=== PATIENT | male | born 1955 | race African-American/Black ===

== ENCOUNTER 2017-06-07 04:22 | Observation (INO) | payer OTHER ==
[2017-06-07 06:20] LABS: Troponin I 0.018 ng/mL (< 0.028)
[2017-06-07] MEDS ORDERED: Ondansetron ODT 4 MG TAB PO PRN (07:24)
[2017-06-07] MEDS ORDERED: Milk Of Magnesia 30 ML UDCUP PO PRN (07:24)
[2017-06-07] MEDS ORDERED: Zolpidem Tartrate 5 MG TAB PO PRN (07:24)
[2017-06-07] MEDS ORDERED: Mag-Al 1200 mg/1200 mg/30 ML UDCUP PO PRN (07:24)
[2017-06-07] MEDS ORDERED: Loperamide HCl 2 MG CAP PO PRN (07:24)
[2017-06-07] MEDS ORDERED: HYDROcodone/Acetaminophen 5/325 mg Tablet PO PRN (07:24)
[2017-06-07] MEDS ORDERED: Senokot 8.6 MG TAB PO PRN (07:24)
[2017-06-07] MEDS ORDERED: Ondansetron HCl/PF 4 MG/2 ML Vial IVP PRN (07:24)
[2017-06-07] MEDS ORDERED: Acetaminophen 325 MG TAB PO PRN (07:24)
[2017-06-07 07:30] VITALS: BMI 33.0
[2017-06-07 07:33] LABS: #Basophils 0.1 thou/uL (0.0-0.2); #Lymphocytes 2.6 thou/uL (1.20-3.40); #Monocytes 0.5 thou/uL (0.11-0.59); #Neutrophils 8.9 thou/uL (1.40-6.50); %Basophils 0.4 % (0.0-1.0); %Eosinophils 0.2 % (0.0-10.0); %Lymphocytes 21.9 % (21.0-51.0); Hematocrit 39.8 % (42.0-52.0); Red Blood Cell (RBC) Count 4.55 mill/uL (4.70-6.10); White Blood Cell (WBC) Count 12.1 thou/uL (4.8-10.8)
[2017-06-07 08:05] LABS: Anion Gap 13 mmol/L (10-20); BUN (Urea Nitrogen) 8 mg/dL (8.4-25.7); Calc. Creatinine Clearance 174 mL/min (70-130); Calcium 9.5 mg/dL (7.8-10.44); Carbon Dioxide 27 mmol/L (23-31); Chloride 97 mmol/L (98-107); Cholesterol 162 mg/dl (< 200 Desired); Estimated GFR-MDRD Greater than 90; LDL Cholesterol, Calculated 90 mg/dL
[2017-06-07] MEDS ORDERED: Dextrose 50% Abboject 50 ML SYRINGE SLOW IVP PRN (08:21)
[2017-06-07] MEDS ORDERED: HumaLOG 300 UNITS/3 ML VIAL SC PRN ×2 (08:21)
[2017-06-07] MEDS ORDERED: Dextrose 5% in Water 1,000 ML IV PRN (08:21)
[2017-06-07] MEDS ORDERED: Potassium Chloride 20 MEQ TAB PO SCH (08:30)
[2017-06-07 08:47] LABS: Troponin I 0.017 ng/mL (< 0.028)
[2017-06-07] MEDS ORDERED: Glimepiride 2 MG TAB PO SCH (09:00)
[2017-06-07] MEDS ORDERED: Non-Formulary Item 1 EACH (Metformin Hcl [Metformin Hcl] 1,000 MG) PO SCH (09:00)
[2017-06-07] MEDS ORDERED: Famotidine 20 MG TAB PO SCH (09:00)
[2017-06-07] MEDS ORDERED: Non-Formulary Item 1 EACH (Benazepril Hcl [Benazepril Hcl] 20 MG) PO SCH (09:00)
[2017-06-07] MEDS ORDERED: metFORMIN 500 MG TAB PO SCH (09:00)
[2017-06-07] MEDS ORDERED: Aspirin 325 MG TAB PO SCH ×2 (09:00→21:00)
[2017-06-07] MEDS: Amlodipine 5 MG TAB PO SCH ×2 (09:57→16:08)
--- NOTE | 2017-06-07 13:16 | SS ---
PRIMARY CARE PHYSICIAN: Dr. Praveen Luna in [place]. DATE OF ADMISSION: 06/07/2017 at 5 a.m. DATE OF DISCHARGE: 06/07/2017 REASON FOR ADMISSION: Transfer from [facility] for rule out ACS. HISTORY OF PRESENT ILLNESS: A 62-year-old -[place] male, who has underlying history of hypertension, diabetes type 2, who also abuses periodically marijuana as well as cocaine and he initially went to the [facility] with complaint of chest pain. The patient's chest pain started after abusing cocaine at constitution party and he also ate barbecue and subsequently he was feeling entire chest wall discomfort, pressure-like sensation, more on the right side as well radiation to neck. Initially, intensity of pain was about 7/10, but gradually intensity of pain was reduced and around 3:00 a.m., his pains completely subsided. The patient was also having cough, which was green sputum without any fever or chills. He denied any pleurisy. He denied any nausea, vomiting, diaphoresis, but he felt shortness of breath. He was evaluated initially at [facility] and over there his EKG was normal. His blood pressure was 209/138. He was given aspirin and nitroglycerin sublingual and nitropatch as well as Zofran and morphine. After this treatment, he was feeling much better. When we saw this patient in the morning, at that time the patient was completely pain free and he was asymptomatic. At this point, his cardiac enzymes are negative and we decided to do a stress test, given his several risk factors for coronary artery disease including diabetes, hypertension, and his age. If stress test is come back negative later on today, then we will consider discharging him home later on today. REVIEW OF SYSTEMS: The following complete review of systems was negative, unless otherwise mentioned in the HPI or below: Constitutional: Weight loss or gain, ability to conduct usual activities. Skin: Rash, itching. Eyes: Double vision, pain. ENT/Mouth: Nose bleeding, neck stiffness, pain, tenderness. Cardiovascular: Palpitations, dyspnea on exertion, orthopnea. Respiratory: Shortness of breath, wheezing, cough, hemoptysis, fever or night sweats. Gastrointestinal: Poor appetite, abdominal pain, heartburn, nausea, vomiting, constipation, or diarrhea. Genitourinary: Urgency, frequency, dysuria, nocturia. Musculoskeletal: Pain, swelling. Neurologic/Psychiatric: Anxiety, depression. Allergy/Immunologic: Skin rash, bleeding tendency. Please see my HPI for pertinent positives and negatives. All other review of systems reviewed and negative except as mentioned in the HPI. ALLERGIES: No known drug allergy. MEDICATIONS: Amlodipine 10 mg p.o. daily, benazepril 20 mg p.o. daily, metformin 1000 mg p.o. daily, Lantus insulin 37 units subcutaneous in the evening. PAST MEDICAL HISTORY: Hypertension, diabetes type 2, and obesity. PAST SURGICAL HISTORY: Appendicectomy, hernia repair, and back surgery. PAST PSYCHIATRIC HISTORY: Reviewed and negative. SOCIAL HISTORY: The patient is smoking about 1 pack per day. He abuses cocaine and marijuana periodically. He denies any alcohol abuse, but also uses periodically. FAMILY HISTORY: Positive for coronary artery disease, hypertension, diabetes among several family members. EMERGENCY ROOM COURSE: Patient is given aspirin and nitroglycerin 0.4 mg, nitropatch, Zofran, and morphine at other emergency room. PHYSICAL EXAMINATION: VITAL SIGNS: On arrival, blood pressure here 182/111, pulse 79, respiratory rate 16, temperature 98.3, saturation 95% on room air, weight 117.9 kilograms. GENERAL: The patient is currently alert, oriented, in no acute distress. HEAD: Normocephalic, atraumatic. LUNGS: Clear to auscultation without any rhonchi or rales. CARDIAC: S1 and S2, regular without any murmur. ENT: Oropharynx within normal limits. Moist mucous membranes. No pharyngeal erythema. No exudate. ABDOMEN: Soft and benign without any tenderness. No organomegaly, no mass, no suprapubic tenderness. BACK: Unremarkable. No CVA tenderness. EXTREMITIES: Upper extremity, passive movement of all joints are normal. Lower extremity, no edema. Good peripheral pulsation. SKIN: No skin rash. HEMATOLOGIC: No lymphadenopathy. NEUROLOGIC: Nonfocal examination. SIGNIFICANT LABORATORY DATA: EKG based on my review reveals normal sinus rhythm , nonspecific ST-T changes, LVH. Chest x-ray based on my review, no acute cardiopulmonary process. CBC: WBC 12.1, hemoglobin 13.2, and platelet 262. BMP: Sodium 134, potassium 3.0, chloride 97, carbon dioxide 27, BUN 8, creatinine 0.71, glucose 158, calcium 9.5. Troponin I 0.018 and then 0.017. Lipid profile: LDL 90, HDL 55, cholesterol 162, triglyceride 84. LFT: AST 34 , ALT 33, alkaline phosphatase 108, albumin 4.6, bilirubin 0.7. BNP 79.2. Urine drug screen done over there, which showed positive for cocaine and cannabinoids. Urinalysis normal. ASSESSMENT AND PLAN: 1. Acute chest pain most likely has association with cocaine abuse. His chest pain most likely related with vasospasm. Surprisingly, his troponin is negative and his EKG is also unremarkable. We can explain his chest pain with cocaine, but he also has at the same time several risk factors for coronary artery disease including hypertension, diabetes that is why we will perform stress test to rule out underlying silent ischemia. We already ruled out acute coronary syndrome with a negative 3 cardiac enzymes, lipid profile also check for risk stratification and that is also within normal limits. At this point, once stress test is negative, then we will consider discharging him home. 2. Polysubstance abuse. The patient has periodical cocaine and marijuana abuse as well as smoking as well as alcohol use. I provided counseling to avoid all other illicit drug abuse. 3. Hypokalemia and hyponatremia. The patient is given potassium chloride 20 mEq p.o. one time dose. 4. Diabetes type 2. The patient will resume glimepiride 2 mg and Lantus 37 units subcutaneous in the evening along with metformin 1000 mg p.o. b.i.d. upon discharge. Diabetic diet will be continued. 5. Hypertension with hypertensive urgency. Currently controlled. Continue amlodipine 5 mg p.o. daily, continue benazepril 20 mg p.o. daily. 6. Obesity with BMI 33, weight loss education will be given. 7. Deep venous thrombosis prophylaxis not needed because we are expecting discharge in 24 hours. 8. Gastrointestinal prophylaxis, Pepcid 20 mg p.o. b.i.d. CODE STATUS: Patient is FULL CODE. The patient's is surrogate decision maker. Disposition plan based on clinical course, based on stress test result. DATE OF ADMISSION: 06/07/2017 DATE OF DISCHARGE: 06/07/2017 DISCHARGE DISPOSITION: Home. PRIMARY DISCHARGE DIAGNOSIS: Chest pain, ruled out acute coronary syndrome, likely due to cocaine. SECONDARY DISCHARGE DIAGNOSES: Diabetes type 2, hypertension, obesity with BMI 33. PRIMARY PROCEDURES/OPERATION: None. RADIOLOGIC INVESTIGATION: Chest x-ray was normal. Stress test: pending result. SIGNIFICANT LABORATORY DATA: Please see above for further details. CONTRAINDICATIONS: None. CODE STATUS: FULL CODE. INPATIENT CONSULTANTS: None. ALLERGIES: No known drug allergy. DISCHARGE PLAN: Post hospital, the patient will follow up with primary care physician. HOSPITAL COURSE: Please see my HPI for further details. The patient is admitted and discharged on the same day. STRESS TEST IS NEGATIVE, ADVISED TO GET ECHO AFTER DISCHARGE AND FOLLOW UP WITH PCP LILIAN
[2017-06-07] MEDS ORDERED: Nitroglycerin 2% Ointment 1 INCH/1 GM Packet TOP SCH (14:00)
[2017-06-07 15:45] VITALS: BP 148/91; TEMP 98.7
--- NOTE | 2017-06-07 16:29 | NM ---
MYOCARDIAL PERFUSION STUDY: 06/07/17 HISTORY: Chest pain. History of hypertension and diabetes mellitus. Positive smoking history. RADIOPHARMACEUTICALS: 27 millicuries technetium 99m Sestamibi, IV at stress and 9 millicuries technetium 99m Sestamibi, IV at rest. MEDICATIONS: 21.3 mL (63.8 mg) Adenosine, IV. FINDINGS: There is normal uptake and distribution of radiotracer seen throughout the left ventricular myocardiu m on the stress acquisition. No reversible defect is seen between the stress and resting acquisition s. Quantitative analysis shows no significant reversible defect. Gaited images show global hypokinesi s. Normal ventricular wall thickening is present. Calculated left ventricular ejection fraction is di minished at 43%. IMPRESSION: 1. Normal myocardial perfusion study without evidence of a reversible defect seen to suggest isc hemia. 2. Global hypokinesis. 3. Diminished LVEF of 43%. POS: CHRIS
[2017-06-07] MEDS ORDERED: INSULIN GLARGINE HUM REC ANLOG 37 UNIT SQ SCH (21:00)
[2017-06-07] MEDS ORDERED: Insulin Detemir 100 UNITS/ML 37 UNITS in Pre-Filled Syringe 1 EACH SC SCH (21:00)
--- NOTE | 2017-06-17 16:48 | EKG ---
Test Reason : CHEST PAIN Blood Pressure : / mmHG Vent. Rate : 078 BPM Atrial Rate : 078 BPM P-R Int : 156 ms QRS Dur : 086 ms QT Int : 464 ms P-R-T Axes : 022 -11 -14 degrees QTc Int : 528 ms Normal sinus rhythm Voltage criteria for left ventricular hypertrophy Nonspecific T wave abnormality Prolonged QT Abnormal ECG Confirmed by LILO SMALL, MARYCRUZ ([id number]), magazine editor GAGE SHEPHERD ([id number]) on 06/17/2017 4:47:14 PM Referred By: LILO Confirmed By:MARYCRUZ NAGY MD
--- NOTE | 2017-06-24 13:35 | STRESS ---
Acquisition Time: 2017-06-07 13:28:35 Total Exercise Time: 00:04:00 Test Indications: CHEST PAIN Medications: Protocol: ADENOSINE Max HR: 082 BPM 51% of Pred: 158 BPM Max BP: 164/100 mmHG Max Work Load: 1.0 METS RESTING ECG: NORMAL SINUS RHYTHM AT 69 BPM WITH NON-SPECIFIC ST SEGMENT AND T-WAVE ABNORMALITIES SYMPTOMS: CHEST PAIN APPROPRIATE BLOOD PRESSURE RESPONSE FOR LEXISCAN ECTOPY: NONE ECG RESPONSE: INVERTED T-WAVES INTERPRETATION: POSITIVE ECG/AWAIT NUCLEAR IMAGES FOR DEFINITIVE DIAGNOSIS Confirmed by BRAD WHEELER MD ([id number]) on 06/24/2017 1:34:22 PM Referred By: Levon JENKINS Confirmed By:BRAD WHEELER MD
== END 2017-06-07 18:17 | disposition home or self-care (01) ==
LOC: ERS 04:22 → 2SW 05:05
PROVIDERS: ADMIT Internal Medicine; ATTEND Internal Medicine
DX: R07.9 Chest pain, unspecified (principal); F19.10 Other psychoactive substance abuse, uncomplicated; E11.9 Type 2 diabetes mellitus without complications; I10 Essential (primary) hypertension; I16.0 Hypertensive urgency; E66.9 Obesity, unspecified; F17.210 Nicotine dependence, cigarettes, uncomplicated; Z68.33 Body mass index [BMI] 33.0-33.9, adult; Z79.4 Long term (current) use of insulin; Z79.899 Other long term (current) drug therapy; Z90.49 Acquired absence of other specified parts of digestive tract; Z98.890 Other specified postprocedural states
CPT/HCPCS: 36415; 36416; 78452; 80048; 80061; 84484; 85025; 93005; 93017; 99285; A9500; G0378; J0153; J1815

== ENCOUNTER 2018-05-03 17:07 | Inpatient (IN) | payer MEDICARE, OTHER, SELFPAY ==
[2018-05-03] MEDS ORDERED: Ondansetron PF 4 MG/2 ML Vial ONE ×2 (17:52→19:47)
[2018-05-03 18:04] LABS: #Lymphocytes 1.5 thou/uL (1.20-3.40); #Monocytes 0.1 thou/uL (0.11-0.59); #Neutrophils 7.5 thou/uL (1.40-6.50); %Basophils 0.4 % (0.0-1.0); %Lymphocytes 16.2 % (21.0-51.0); %Monocytes 1.1 % (0.0-10.0); %Neutrophils 82.2 % (42.0-75.0); Hemoglobin 13.8 g/dL (14.0-18.0); Mean Corpuscular HGB CONC 31.1 g/dL (32.0-36.0); Mean Corpuscular Hemoglobin 26.8 pg (27.0-31.0); Mean Corpuscular Volume 86.1 fL (78.0-98.0); Mean Platelet Volume 8.4 fL (7.4-10.4); Platelet Count 276 thou/uL (130-400); RBC Distribution Width 11.8 % (11.5-14.5); Red Blood Cell (RBC) Count 5.14 mill/uL (4.70-6.10); White Blood Cell (WBC) Count 9.1 thou/uL (4.8-10.8)
[2018-05-03 18:12] LABS: PTT 25.8 SEC (22.9-36.1); Prothrombin Time 12.9 SEC (12.0-14.7)
[2018-05-03] MEDS ORDERED: hydrALAZINE 20 MG/ML VIAL ONE ×2 (18:26→19:07)
[2018-05-03 18:33] LABS: ALT (SGPT) 36 U/L (8-55); AST (SGOT) 31 U/L (5-34); Albumin 4.5 g/dL (3.4-4.8); Alkaline Phosphatase 120 U/L (40-150); Anion Gap 17 mmol/L (10-20); BUN (Urea Nitrogen) 8 mg/dL (8.4-25.7); Bilirubin, Total 0.4 mg/dL (0.2-1.2); CK (CPK) 111 U/L (30-200); Calc. Creatinine Clearance 0 mL/min (70-130); Calcium 8.8 mg/dL (7.8-10.44); Carbon Dioxide 22 mmol/L (23-31); Chloride 101 mmol/L (98-107); Estimated GFR-MDRD Greater than 90; Glucose 321 mg/dL (80-115); Potassium 3.3 mmol/L (3.5-5.1); Protein, Total 8.5 g/dL (5.8-8.1); Sodium 137 mmol/L (136-145)
[2018-05-03 18:38] LABS: CKMB 1.6 ng/mL (0-6.6); Troponin I 0.038 ng/mL (< 0.028)
[2018-05-03] MEDS ORDERED: niCARdipine 20MG In NaCl 20 MG/200 ML BAG ONE (19:29)
[2018-05-03] MEDS ORDERED: Ondansetron PF 4 MG/2 ML Vial IVP PRN (19:40)
[2018-05-03] MEDS ORDERED: Docusate 100 MG CAP PO PRN (19:40)
[2018-05-03] MEDS ORDERED: Bisacodyl 10 MG SUPP PR PRN (19:40)
[2018-05-03] MEDS ORDERED: Acetaminophen 325 MG TAB PO PRN (19:40)
[2018-05-03] MEDS ORDERED: Milk Of Magnesia 30 ML UDCUP PO PRN (19:40)
[2018-05-03] MEDS ORDERED: Mag-Al 1200 mg/1200 mg/30 ML UDCUP PO PRN (19:40)
[2018-05-03] MEDS ORDERED: Lidocaine 1% (PF) 30 ML VIAL ONE (19:47)
--- NOTE | 2018-05-03 20:10 | RAD ---
CHEST ONE VIEW: Indication: History of vertigo. Comparison: 05-03-18 FINDINGS: There is stable cardiomegaly. Osseous structures are unchanged. No pleural effusion or pneumothorax i s evident. IMPRESSION: Stable exam. POS: CHRIS
--- NOTE | 2018-05-03 20:49 | CT ---
CT OF THE BRAIN WITHOUT CONTRAST: 05/03/18 INDICATION: Stroke alert. Vomiting. FINDINGS: There is a intraparenchymal hemorrhage involving the left cerebellar hemisphere with hemorrhage exten mechelle into the subarachnoid space overlying the left cerebellar hemisphere extending into the ambient cistern. No hydrocephalus is evident. No midline shift is noted. There is some layered hemorrhage see n along the tentorium, left greater than right. The skull and extracranial soft tissues are unremarka ble appearing. IMPRESSION: 1. Acute intraparenchymal hemorrhage involving the left cerebellar hemisphere with hemorrhage ex tension into the subarachnoid space overlying the left cerebellar hemorrhage extending up into the am bient cistern and layering hemorrhage along the tentorium. No hydrocephalus or midline shift is evide nt. 2. Findings called to at 6:05 p.m. on 05/03/18. Followup MRI of the brain with and wi thout contrast may be helpful to exclude the presence of an underlying lesion related to the hemorrha ge. Neurology consultation is recommended. CT surveillance to document stability of size of the hemor rhage is recommended. POS: LOUIS
[2018-05-03 21:29] VITALS: BMI 28.3
[2018-05-03] MEDS ORDERED: niCARdipine HCl 50 MG in Sodium Chloride 0.9% 250 ML 240 ML IVPB PRN (21:46)
[2018-05-03 21:53] LABS: Troponin I 0.034 ng/mL (< 0.028)
[2018-05-03] MEDS: hydrALAZINE 20 MG/ML VIAL SLOW IVP PRN ×2 (21:57→23:10)
[2018-05-03] MEDS ORDERED: Dextrose 50% Abboject 50 ML SYRINGE IVP PRN (22:55)
[2018-05-03] MEDS ORDERED: Dextrose 5% in Water 1,000 ML IV PRN (22:55)
[2018-05-03] MEDS ORDERED: Amlodipine 10 MG TAB PO SCH (23:00)
[2018-05-03] MEDS: Insulin Regular 300 UNITS/3 ML VIAL SC PRN (23:50)
[2018-05-03] MEDS: Labetalol HCl 100 MG/20 ML VIAL SLOW IVP PRN (23:51)
[2018-05-04] MEDS: hydrALAZINE 20 MG/ML VIAL SLOW IVP PRN ×5 (00:47→09:29)
[2018-05-04] MEDS: niCARdipine HCl 50 MG in Sodium Chloride 0.9% 250 ML 230 ML IVPB PRN ×6 (00:50→22:56)
[2018-05-04 01:11] LABS: Troponin I 0.043 ng/mL (< 0.028)
--- NOTE | 2018-05-04 03:01 | HP ---
DATE OF CONSULTATION: 05/03/2018 HISTORY OF PRESENT ILLNESS: Mr. Husain came to the emergency department today due to vertigo, dizzin ess and imbalance. Patient has a history of uncontrolled hypertension as well as diabetes and appare nt history of marijuana and cocaine abuse. Patient states that this morning around 7:30 a.m., he was out checking his trap and he bent down and became dizzy. He states that he does not check his blood pressure regularly and that has kind of progressed, his dizziness got worse. He states that he star eriberto having some difficulty with speech and that he was unsteady on his feet. He states that he fell but did not hit his head or lose consciousness and he went to the [facility] prior to c oming to [place] in [place]. Patient states that he does not take his medications for his blood pre ssure or his diabetes, because of insufficient funds, he, however, smokes approximately a pack of cig arettes a day; however, he states today that he is done with them. Patient states that if he looks t o the right, the dizziness gets worse. If he lays with his eyes closed, it is more or less tolerable . Patient states that he does not take any blood thinners. REVIEW OF SYSTEMS: Patient reports chills and fevers. He reports weakness. He denies any change in vision or hearing. He states that he has been dizzy. Denies headache. Denies any sore throat or d ifficulty swallowing. He denies any chest pain or palpitations. He states that he has had some shor tness of breath. Denies cough. Denies any abdominal pain or constipation. He states that he has burkett d some diarrhea in the last couple of days. He stated that he has frequent urination, but no muscle or skeletal pain. PAST MEDICAL HISTORY: Significant for hypertension, diabetes type 2. SURGICAL HISTORY: States that he has not had a recent lumbar back surgery, knee surgery, and hernia repair. SOCIAL HISTORY: Patient denies alcohol use. He denies drug use; however, in 2017. He was admitted to our hospital with cocaine use. He states that he is currently a tobacco user. He smokes cigarett es approximately a pack a day. He lives in [place] with his . Retired from . MEDICATIONS: Amlodipine, benazepril, metformin, and Lantus. PHYSICAL EXAMINATION: VITAL SIGNS: Blood pressure 192/105, heart rate 64, respirations 22, oxygen 100% on room air, temper ature 98.4. GENERAL: Patient is alert and oriented to person, place, and time. He is resting in his hospital be d, he does appear to be in distress. He relates to the left side with his eyes closed and covers his head due to stated vertigo. HEENT: Head is normocephalic, atraumatic. Pupils are equal, round, reactive to light. Extraocular movements are intact. Hearing is intact. Moist mucous membranes. RESPIRATORY: Normal work of breathing room air, nondistressed. CARDIOVASCULAR: Regular rate and rhythm. EXTREMITIES: The patient is moving upper and lower extremities well. He denies pain 5/5 strength in deltoids, biceps, triceps, and therapeutic assistant strength; 5/5 bilateral strength in dorsiflexion, plantar flexio n, knee flexion and extension; 4/5 hip flexion on the right, weakness, possibly due to prior lumbar s urgery. Equal sensation bilaterally. NEUROLOGIC: Patient is alert and oriented to person, place and time. Cranial nerves II through XII are intact. Speech is spontaneous and fluent. Normal fund of knowledge, no pronator drift, light fa cial droop on the left. Sensation is symmetrical bilaterally, equal sensation bilaterally. He has d ecreased speed with [id number] test on the left. IMAGING: CT of the brain shows a left intracerebellar hemorrhage, which measures approximately 22.4 mm as the largest. ASSESSMENT AND PLAN: Mr. Husain has sustained an intracerebellar hemorrhage, most likely due to unco ntrolled hypertension. PLAN: We will admit him to the hospital and monitor him overnight. We will control his blood pressu re, we will keep it below 140 systolic. We will repeat the CT scan in the morning and obtain regular neuro checks.
[2018-05-04] MEDS: Labetalol HCl 100 MG/20 ML VIAL SLOW IVP PRN (04:03)
[2018-05-04] MEDS: Insulin Regular 300 UNITS/3 ML VIAL SC PRN (05:33)
[2018-05-04] MEDS ORDERED: Ondansetron PF 4 MG/2 ML Vial IVP PRN (06:51)
--- NOTE | 2018-05-04 07:18 | PRG ---
DATE OF SERVICE: 05/04/2018 I personally interviewed and examined the patient and I agree with the documentation of Gemini turner PA-C, dated 05/04/2018. Briefly, Mr. Anish Husain noticed he was off balance yesterday morning and took a fall. He did not strike his head, but he almost went down to the ground. That imbalance and incoordination continued and he sought care in our emergency department where CT examination of the brain showed a cerebellar intraparenchymal hemorrhage. He was admitted to ICU overnight. We controlled his blood pressure and I am seeing him this morning. Mr. Husain denies any neurological complaints this morning. He says he is headache free. He feels great. He wants to leave the hospital. Vital signs have been stable overnight and the blood pressure, which was high on admission is currently 152/53. On examination, t here is mild, if any, dysmetria in the left upper extremity. I did not test truncal ataxia, but the upper and lower extremities seem to be moving well. Alternating rapid motions are slightly slower on the left. I do not find any lateralizing motor deficit. There is no sensory disturbance. I reviewed CT examination of the brain this morning and I see the intraparenchymal hematoma in the le ft cerebellum with some extension into the subarachnoid space. The area of blood products and the si ze of the blood products are exactly the same as they were yesterday. There is no additional mass ef fect. There is no swelling. The fourth ventricle is open. There is no hydrocephalus. Mr. Husain's intraparenchymal hemorrhage is likely a spontaneous intracerebral hemorrhage from hypert ension. Other possibilities include a cavernous malformation, metastatic lesion and primary neoplasm , but finding those with MR imaging in the presence of blood products would require us to wait until the blood is resolved. Mr. Husain does not require neurosurgical intervention. We will hand off this care to the inpatient medical team. If our colleagues are inquisitive about the potential of metastatic lesion, a CT of th e chest, abdomen, and pelvis or an MRI scan of the brain with and without contrast can be ordered [facility] for other lesions. I plan on scheduling a brain MRI scan when the blood products have resolved completely in our office in a few weeks.
[2018-05-04] MEDS ORDERED: Dextrose 5% in Water 1,000 ML IV PRN ×2 (07:42→07:45)
[2018-05-04] MEDS ORDERED: Dextrose 50% Abboject 50 ML SYRINGE SLOW IVP PRN ×2 (07:42→07:45)
[2018-05-04] MEDS ORDERED: CCU Electrolyte Replacement 1 EACH FS ONE (07:52)
[2018-05-04] MEDS ORDERED: Potassium Chloride 40 MEQ in Sodium Chloride 0.9% 250 ML 250 ML IVPB PRN (08:03)
[2018-05-04] MEDS ORDERED: Potassium Chloride 20 MEQ TAB PO PRN (08:03)
[2018-05-04] MEDS ORDERED: Magnesium Oxide 400 MG TAB PO PRN ×2 (08:03)
[2018-05-04] MEDS ORDERED: Magnesium 2 GM/NS 0.9% 100 ML 2 GM in Premix Bag 1 BAG IVPB PRN (08:03)
[2018-05-04] MEDS ORDERED: Potassium Phosphate 9 MMOL in Sodium Chloride 0.9% 100 ML IVPB PRN (08:03)
[2018-05-04] MEDS ORDERED: Potassium Phosphate 15 MMOL in Sodium Chloride 0.9% 250 ML 250 ML IV PRN (08:03)
[2018-05-04] MEDS ORDERED: Potassium Phosphate 12 MMOL in Sodium Chloride 0.9% 250 ML 250 ML IV PRN (08:03)
[2018-05-04] MEDS ORDERED: Potassium Chloride 40 MEQ in Premix Bag 1 BAG IVPB PRN (08:03)
--- NOTE | 2018-05-04 08:23 | CON ---
DATE OF CONSULTATION: 05/04/2018 CONSULTING PHYSICIAN: Dr. Alvarez REASON FOR CONSULTATION: Hypertension, diabetes, and stroke. HISTORY OF PRESENT ILLNESS: Mr. Husain is a 63-year-old male who developed dizziness and vertigo. Y esterday, he was found to have a left intracerebral hemorrhage measuring about 2.2 cm. Neurosurgery has elected to treat this medically. The patient says he feels better today. He does not have any h eadache. His blood pressure is in better control, but he is requiring a Cardene drip. He is also burkett ving trouble with his blood sugar. I am having a hard time getting a consistent history from him. It sounds like he probably was not ta linh his medications at home. He is managed by medical doctor in [place]. PAST MEDICAL HISTORY: 1. Hypertension. 2. Diabetes mellitus type 2. 3. Substance abuse. PAST SURGICAL HISTORY: Lumbar back surgery and hernia repair. SOCIAL HISTORY: Occasionally drinks alcohol. He smokes tobacco heavily. He has abused cocaine in t he past, but he says not in the past year. He also occasionally smokes marijuana. MEDICATIONS PRIOR TO ADMISSION: Amlodipine, benazepril, metformin, Lantus. REVIEW OF SYSTEMS: Twelve point review of systems otherwise negative. PHYSICAL EXAMINATION: VITAL SIGNS: Temperature 99.3, pulse 79, blood pressure 114/98, O2 sat 97%. Intake 861, output 725. HEENT: Pupils are reactive. Extraocular movements intact. Sclerae icteric. Oropharynx clear. Ton vivien protrudes midline, might have a slight left-sided facial droop. NECK: No adenopathy, JVD, or bruits. LUNGS: Clear without wheezing or rhonchi. CARDIAC: S1, S2 regular without audible murmur, rub or gallop. ABDOMEN: Soft, nontender. EXTREMITIES: No clubbing, cyanosis, or edema. NEUROLOGIC: Totally nonfocal. LABORATORY DATA: Sodium 137, potassium 3.3, chloride 101, CO2 22, BUN 8, creatinine 0.8, glucose 321 , troponin 0.043. INR 1.0. White blood cell count 9.1, hematocrit 44.3, platelet count 276. I revi ewed the head CT. His chest x-ray demonstrates normal heart size, tortuous aorta, no evidence of pulmonary edema. ASSESSMENT: 1. Left-sided intracerebellar bleed. 2. Malignant hypertension. 3. Diabetes out of control. PLAN: 1. Right now he is on insulin drip. We will try to get his blood sugar under control with that and some Lantus insulin and hopefully switch him over to sliding scale. 2. His amlodipine was restarted today. I am not in a hurry to lower his blood pressure too much. H opefully can be weaned off the Cardene today, but that may take a day or two. 3. Check urine drug screen. 4. Monitor neurologic status.
[2018-05-04] MEDS ORDERED: Insulin Glargine 30 UNITS in Pre-Filled Syringe 1 EACH SC SCH (09:00)
--- NOTE | 2018-05-04 09:09 | CT ---
PRELIMINARY REPORT/[facility]/EMERGENTY AFTER-HOURS PROCEDURE Addendum created by Juancarlos Vargas MD on 05/04/2018 5:56 AM Central Time ([place] & [place]) Small linear hemorhagic focus may infact reside within the ambient cistern and by extra-parenchymal. Addendum created by Juancarlos Vargas MD on 05/04/2018 5:18 AM Central Time ([place] & [place]) THIS REPORT CONTAINS FINDINGS THAT MAY BE CRITICAL TO PATIENT CARE. The findings were verbally commun icated via telephone conference with Emerald Solares by Dr. Vargas on 05/04/2018 5:18 AM [employer]. The results were acknowledged and understood. Initial Report created on 05/04/2018 4:57 AM Central Time ([place] & [place]) CT Head Without Intravenous Contrast EXAM DATE/TIME: 05/04/2018 4:32 AM CLINICAL HISTORY: 63 years old, male; Condition or disease; Aneurysm, cerebral; Patient HX: Ccu6, follow up, intracereb ral hemorrhagic stroke from 1800 yesterday 04/27/2018 notes below. Report sent. Imag. rosi Griffiths kaci - 05/03/2018 6: 00: 11 pm. Stroke alert, call dr. Santana at [phone]. This is a 63 yo m here for cc of vertigo and vomiting. Patient had a sudden onset of dizziness following by a fall. Patient states it came on suddenly when he looked to the right. Patient states since this time he has had nausea and multiple episodes of vomiting. Patient denies change in speech, vision changes. Patient endorses feeling weak in general and fatigued. Patient states that he has been unsteady on his feet since this time. He describes the dizziness as if the room is spinning. It is made better by closing his eyes w ith his head turned to the left. Made worse when looking to the right, walking and with eyes open. Mark gutierrez endorses subjective fever and chills. Gcs 15. TECHNIQUE: Axial computed tomography images of the head/brain without intravenous contrast. COMPARISON: No relevant prior studies available. FINDINGS: Brain: 2.2 x 2.0 cm parenchymal hemorrhage extending from the left brachium pontis into the left cere bellar hemisphere, with surrounding vasogenic edema. Slighly medial and ventral to this hemorrhage is an additional focal linear 12 mm hemorrhage. No significant mass effect. No hydrocephalus or herniat ion. Ventricles: No ventriculomegaly. No shift. Bones/joints: No acute fracture. Sinuses: Normal as visualized. No acute sinusitis. Mastoid air cells: Normal as visualized. No mastoid effusion. Soft tissues: 2.0 cm right occipital scalp cyst. IMPRESSION: Left posterior fossa hemorrhagic foci as described. Most likely differential considerations to includ e hypertensive hemorrhage vs hemorrhagic infarct vs hemorrhage of occult vascular malformation. No si gnificant mass effect. No hydrocephalus or herniation. Thank you for allowing us to participate in the care of your patient. Dictated and Authenticated by: Juancarlos Vargas MD 05/04/2018 4:57 AM Central Time ([place] & [place]) FINAL REPORT CT BRAIN PERFORMED ON AN EMERGENCY BASIS: Date: 05/04/18 FINDINGS/IMPRESSION: I agree with the above provided preliminary interpretation from [facility]. 1. Intraparenchymal hemorrhage of the left cerebellar hemisphere. There is surrounding subarachnoid hemorrhage and redemonstration of linear extension into the posterior aspect of the left middle cereb ellar peduncle. 2. Mild effacement of fourth ventricle is stable. POS: LOUIS
[2018-05-04] MEDS ORDERED: Sodium Chloride 0.65% Nasal 44 ML BOT EA NARE PRN (09:14)
[2018-05-04] MEDS ORDERED: Cepastat Lozenges 1 LOZ PO PRN (09:14)
[2018-05-04] MEDS ORDERED: Diabetic Tussin 200 MG/10 ML UDCUP PO PRN (09:14)
[2018-05-04] MEDS ORDERED: Zolpidem Tartrate 5 MG TAB PO PRN (09:14)
[2018-05-04] MEDS ORDERED: Eucerin (Mineral Oil/Petrolatum,White) 30 gm Jar TOP PRN (09:14)
[2018-05-04] MEDS ORDERED: Senokot S 8.6-50 MG TAB PO PRN (09:14)
[2018-05-04] MEDS ORDERED: Loratadine 10 MG TAB PO PRN (09:14)
[2018-05-04] MEDS ORDERED: Artificial Tears 18 DROP/0.9 ML EA EYE PRN (09:14)
--- NOTE | 2018-05-04 10:51 | CON ---
DATE OF CONSULTATION: 05/04/2018 PRIMARY CARE PHYSICIAN: Patient states that his primary care physician is in [place], [place]. REASON FOR ADMISSION: Left cerebellar hemorrhage. PRIMARY ATTENDING: Dr. Alvarez. REASON FOR CONSULTATION: Medical comanagement. HISTORY OF PRESENT ILLNESS: A 63-year-old -[place]ian male with history of diabetes and hyperte nsion, who came to emergency room yesterday with complaint of dizziness and vertigo. He was also hav ing headache. Patient also had one episode of vomiting. Patient initially evaluated at [facility] subsequently he was transferred to our emergency room. His blood sugar was very high when he came to emergency room. He was diagnosed with left cerebellar hemorrhage. Initially CT brain also showed that the hemorrhage extended to subarachnoid space. There was no hydrocephalus or midline shift. O vernight, the patient was admitted to CCU and neurosurgeon was managing. Today, we are consulted for medical comanagement. He had earlier today another CT brain which did not show any change in his he morrhage. The patient is doing very well. Today, he does not have any weakness on upper or lower ex tremity. He only feels mild woozy feeling in his brain whenever he changes head position. He denies any diplopia. He denies any nausea or vomiting. His headache is resolved. When he presented to emergency room, he was hypertensive and during night time, the patient's blood p ressure was controlled with Cardene drip. His blood sugar is out of control. His troponin is elevat ed, but patient does not have any chest pain. He denies any shortness of breath. The patient reports that since he arrived to the ICU, he has not tried getting out of bed, but he fee ls much better from his symptoms perspective. Neurology already evaluated this patient and they are thinking that this patient does not need any neurosurgical treatment and they wanted to transfer of c are to Medicine Service. REVIEW OF SYSTEMS: The following complete review of systems was negative, unless otherwise mentioned in the HPI or below: Constitutional: Weight loss or gain, ability to conduct usual activities. Sk in: Rash, itching. Eyes: Double vision, pain. ENT/Mouth: Nose bleeding, neck stiffness, pain, te nderness. Cardiovascular: Palpitations, dyspnea on exertion, orthopnea. Respiratory: Shortness of breath, wheezing, cough, hemoptysis, fever or night sweats. Gastrointestinal: Poor appetite, abdom inal pain, heartburn, nausea, vomiting, constipation, or diarrhea. Genitourinary: Urgency, frequenc y, dysuria, nocturia. Musculoskeletal: Pain, swelling. Neurologic/Psychiatric: Anxiety, depressio n. Allergy/Immunologic: Skin rash, bleeding tendency. Please see my HPI for pertinent positive and negative. All other review of systems reviewed and nega tive except as mentioned in the HPI. ALLERGIES: No known drug allergy. CURRENT HOME MEDICATIONS: Amlodipine 10 mg daily, benazepril 20 mg daily, metformin 1000 mg p.o. ron ly, Lantus 37 units subcu in the evening. PAST MEDICAL HISTORY: Diabetes type 2, hypertension, obesity. PAST SURGICAL HISTORY: Appendicectomy, back surgery, hernia repair. PAST PSYCHIATRIC HISTORY: Reviewed and negative. SOCIAL HISTORY: Patient is smoking about 1 pack per day. He has previous history of cocaine and mar ijuana abuse. He denies any alcohol abuse. FAMILY HISTORY: Positive for coronary artery disease, hypertension, diabetes among several family me mbers. EMERGENCY ROOM COURSE: Patient was given hydralazine 10 mg x2, 20 mg x1. Cardene drip was started, Zofran 4 mg x2 was given. PHYSICAL EXAMINATION: VITAL SIGNS: On arrival to emergency room, blood pressure 192/105, pulse 64, respiratory rate 22, te mperature 98.4, saturation 100%. Currently, his blood pressure 153/64. GENERAL: Patient is currently alert, awake, no obvious acute distress. HEAD: Normocephalic, atraumatic. EYES: Pupils round, reactive to light. Extraocular muscle intact. ENT: Oropharynx within normal limits. Moist mucous membrane, no oral lesion, no pharyngeal erythema , no exudate. NECK: Supple, no JVD, no thyromegaly, no carotid bruit, no jugular venous distention. LUNGS: Clear to auscultation without any rhonchi or rales. CARDIAC: S1, S2 regular without any murmur. ABDOMEN: Soft, bowel sounds present, nontender, nondistended. No organomegaly, no mass, no suprapub ic tenderness. BACK: Unremarkable, no CVA tenderness. EXTREMITIES: Upper extremity: Passive movements of all joints are normal. Lower extremities: No e dez. Good distal pulsation. SKIN: No skin rash. LYMPH: No lymphadenopathy. PSYCHIATRIC: Normal affect. NEUROLOGIC: The patient is alert, oriented x3. The patient is feeling mild dizziness with changing head position. He is moving all 4 limbs. He does not have any focal neurological deficit other than mild dysmetria on the left side. SIGNIFICANT LABORATORY DATA: 1. EKG showing normal sinus rhythm, nonspecific ST-T changes, LVH. 2. CT brain. The patient had a CT brain yesterday which showed acute intraparenchymal hemorrhage in left cerebellar hemisphere with the hemorrhage extended to subarachnoid space without any hydrocepha ivory, without any midline shift and this morning, the patient had another CT brain that also showed st able finding without any worsening. 3. CBC: WBC 9.1, hemoglobin 13.8, platelet 276. INR 1.0. BMP shows sodium 137, potassium 3.3, chl oride 101, carbon dioxide 22, BUN 8, creatinine 0.86. Glucose 321, calcium 8.8. 4. LFT: AST 31, ALT 36, alkaline phosphatase 120, albumin 4.5. 5. CK 111. CK-MB 1.6. Troponin 0.038, then 0.034, and then 0.043. ASSESSMENT: 1. Acute hemorrhagic cerebrovascular accident secondary to acute intraparenchymal left cerebellar he misphere hemorrhage, nontraumatic, most likely related with hypertension. 2. Hypertensive emergency on admission, controlled with Cardene drip. 3. Demand ischemia of myocardium due to uncontrolled hypertension. 4. Hypokalemia. 5. Diabetes type 2, uncontrolled. Currently on insulin drip. PLAN: 1. Medicine team will take over on care. 2. Once insulin drip is discontinued and arterial line discontinued at that point, we will transfer him to stroke floor. We will check urine drug screen, echocardiography to assess ejection fraction a nd other structural abnormality. Carotid Doppler to rule out any carotid stenosis. We will check he moglobin A1c, lipid profile and TSH tomorrow. We will consult stroke team for evaluation. Patient w ill be observed in the hospital for a couple of days and then we will consider discharging him home. We will resume his blood pressure medication and titrate blood pressure medication. We will also re sume Lantus insulin as per his home dosage. 3. Deep venous thrombosis prophylaxis. SCD boots. 4. Gastrointestinal prophylaxis, Protonix 40 mg p.o. daily. 5. Code status: The patient is FULL CODE. 6. Tobacco abuse disorder. Smoking cessation counseling given. Disposition plan based on clinical course. Thank you for the consult. We will carry forward of his care while in hospital.
[2018-05-04] MEDS: HumaLOG 300 UNITS/3 ML VIAL SC PRN ×3 (12:27→21:01)
--- NOTE | 2018-05-04 14:06 | ULT ---
CAROTID DUPLEX ULTRASOUND: DATE: 05/04/18 INDICATION: History of cerebellar hemorrhage. FINDINGS: Peak systolic velocity in the right ICA was 57.4 cm/second and in the left ICA was 73.7 cm/second. Peak systolic velocity in the right CCA was 101.9 cm/second and in the left was CCA was 134.4 cm/seco nd. The right ICA/CCA ratio was 0.56 and the left was 0.55. Antegrade flow within both vertebral arteries. IMPRESSION: No hemodynamically significant stenosis demonstrated. POS: LOU[facility]
[2018-05-04] MEDS: metFORMIN 500 MG TAB PO SCH (17:08)
[2018-05-04 17:32] LABS: Amphetamine Not Detected (NotDetected); Barbiturates Screen Not Detected (NotDetected); Benzodiazepine Screen Not Detected (NotDetected); Cocaine Metabolite Screen Not Detected (NotDetected); Medtox Control Line Valid? VALID (VALID); Medtox Reader # READER 4; Methadone Not Detected (NotDetected); Methamphetamine Not Detected (NotDetected); Opiate Screen Not Detected (NotDetected); Oxycodone Screen Not Detected (NotDetected); Phencyclidine (PCP) Not Detected (NotDetected); THC/Cannabinoid Screen Detected (NotDetected); Tricyclic Screen Not Detected (NotDetected)
[2018-05-04] MEDS: Amlodipine 10 MG TAB PO SCH (21:01)
[2018-05-05] MEDS: niCARdipine HCl 50 MG in Sodium Chloride 0.9% 250 ML 230 ML IVPB PRN (03:49)
[2018-05-05 04:23] LABS: Hemoglobin A1c 10.1 % (4.0-6.0)
[2018-05-05 04:37] LABS: Cardiac Risk 3.5 (Less than 4.5)
[2018-05-05] MEDS: HumaLOG 300 UNITS/3 ML VIAL SC PRN ×4 (06:30→21:58)
[2018-05-05] MEDS: metFORMIN 500 MG TAB PO SCH ×2 (08:39→17:11)
[2018-05-05] MEDS ORDERED: Insulin Glargine 35 UNITS in Pre-Filled Syringe 1 EACH SC SCH (09:00)
--- NOTE | 2018-05-05 09:49 | PDOC.PN ---
- Subjective Encounter Start Date: 05/05/18 Encounter Start Time: 09:00 -: old records requested/rev Patient seen and examined. No new complaints. No overnight events - Objective Resuscitation Status: Resuscitation Status FULL:Full Resuscitation MAR Reviewed: Yes Vital Signs & Weight: Vital Signs (12 hours) Temp 05/05/18 00:00 99.4 F Weight Weight 233 lb 0.458 oz Most Recent Monitor Data Heart Rate from ECG 82 NIBP 122/85 NIBP BP-Mean 97 Respiration from ECG 23 SpO2 98 I&O: 05/04/18 05/05/18 05/06/18 06:59 06:59 06:59 Intake Total 861 2271.9 Output Total 725 1750 Balance 136 521.9 Result Diagrams: 05/03/18 17:58 05/03/18 17:58 Additional Labs: Accuchecks 05/05/18 05/04/18 05/04/18 06:27 21:00 17:11 POC Glucose 400 H 235 H 410 H 05/04/18 05/04/18 05/04/18 12:16 09:55 07:39 POC Glucose 271 H 275 H 440 H 05/04/18 06:50 POC Glucose 539 H Radiology Reviewed by me: Yes (carotid US-normal) EKG Reviewed by me: Yes (nsr) Phys Exam - Physical Examination Constitutional: NAD HEENT: PERRLA, moist MMs, sclera anicteric Neck: no JVD, supple Respiratory: no wheezing, no rales, no rhonchi Cardiovascular: RRR, no significant murmur, no rub Gastrointestinal: soft, non-tender, no distention, positive bowel sounds Musculoskeletal: no edema, pulses present Neurological: non-focal, normal sensation, moves all 4 limbs Lymphatic: no nodes Psychiatric: normal affect, A&O x 3 Skin: no rash, normal turgor Dx/Plan (1) Cerebellar hemorrhage, nontraumatic Code(s): I61.4 - NONTRAUMATIC INTRACEREBRAL HEMORRHAGE IN CEREBELLUM Status: Acute Qualifiers: Laterality: left Qualified Code(s): I61.4 - Nontraumatic intracerebral hemorrhage in cerebellum (2) Demand ischemia of myocardium Code(s): I24.8 - OTHER FORMS OF ACUTE ISCHEMIC HEART DISEASE Status: Acute (3) Hyperglycemia due to type 2 diabetes mellitus Code(s): E11.65 - TYPE 2 DIABETES MELLITUS WITH HYPERGLYCEMIA Status: Acute (4) Hypertensive emergency Code(s): I16.1 - HYPERTENSIVE EMERGENCY Status: Resolved (5) Hypokalemia Code(s): E87.6 - HYPOKALEMIA Status: Acute (6) Diabetes type 2, uncontrolled Code(s): E11.65 - TYPE 2 DIABETES MELLITUS WITH HYPERGLYCEMIA Status: Chronic (7) Hypertension Code(s): I10 - ESSENTIAL (PRIMARY) HYPERTENSION Status: Chronic (8) Tobacco abuse Code(s): Z72.0 - TOBACCO USE Status: Chronic (9) Cannabis abuse Code(s): F12.10 - CANNABIS ABUSE, UNCOMPLICATED Status: Chronic - Plan cont current plan of care, PT/OT * will add coreg 12.5 mg po bid and lisinopril 5 mg po daily * today will try to wean off cardene drip * then will consider transfer to stroke * today echo * increase lantus 35 unit in AM and 15 unit in PM * medication reviewed as below * symptomatic treatment. Review of Systems - Review of Systems Eyes: negative: Pain, Vision Change, Conjunctivae Inflammation, Eyelid Inflammation, Redness, Other ENT: negative: Ear Pain, Ear Discharge, Nose Pain, Nose Discharge, Nose Congestion, Mouth Pain, Mouth Swelling, Throat Pain, Throat Swelling, Other Respiratory: negative: Cough, Dry, Shortness of Breath, Hemoptysis, SOB with Excertion, Pleuritic Pain, Sputum, Wheezing Cardiovascular: negative: chest pain, palpitations, orthopnea, paroxysmal nocturnal dyspnea, edema, light headedness, other Gastrointestinal: negative: Nausea, Vomiting, Abdominal Pain, Diarrhea, Constipation, Melena, Hematochezia, Other Genitourinary: negative: Dysuria, Frequency, Incontinence, Hematuria, Retention , Other Musculoskeletal: negative: Neck Pain, Shoulder Pain, Arm Pain, Back Pain, Hand Pain, Leg Pain, Foot Pain, Other Skin: negative: Rash, Lesions, Kade, Bruising, Other Neurological: negative: Weakness, Numbness, Incoordination, Change in Speech, Confusion, Seizures, Other - Medications/Allergies Allergies/Adverse Reactions: Allergies Allergy/AdvReac Type Severity Reaction Status Date / Time No Known Allergies Allergy Unverified 06/07/17 07:31 Medications: Current Medications Acetaminophen (Tylenol) 650 mg PO Q6H PRN PRN Reason: Fever > 101 or Headache Al Hydroxide/Mg Hydroxide (Maalox) 30 ml PO QIDPRN PRN PRN Reason: Dyspepsia Amlodipine Besylate (Norvasc) 10 mg PO HS [facility] Last Admin: 05/04/18 21:01 Dose: 10 mg Artificial Tears (Tears Naturale) 2 drop EA EYE PRN PRN PRN Reason: Dry Eyes Bisacodyl (Dulcolax) 10 mg OK DAILYPRN PRN PRN Reason: Constipation Carvedilol (Coreg) 12.5 mg PO BID-WM LYUBOV Carvedilol (Coreg) 12.5 mg PO NOW [facility] Dextrose/Water (Dextrose 50%) 25 gm SLOW IVP PRN PRN PRN Reason: Hypoglycemia Docusate Sodium (Colace) 100 mg PO BIDPRN PRN PRN Reason: Constipation Glucagon (Glucagon) 1 mg IM PRN PRN PRN Reason: HYPOGLYCEMIA PROTOCOL Guaifenesin (Robitussin Sf) 200 mg PO Q4H PRN PRN Reason: Cough Hydralazine HCl (Apresoline) 5 mg SLOW IVP Q15MIN PRN PRN Reason: SBP >140 Last Admin: 05/04/18 09:29 Dose: 5 mg Nicardipine HCl 50 mg/ Sodium (Chloride) 250 mls @ 0 mls/hr IVPB INF PRN; Protocol PRN Reason: TO KEEP SBP < 140 Last Admin: 05/05/18 03:49 Dose: 250 mls Dextrose/Water (D5w) 1,000 mls @ 0 mls/hr IV .Q0M PRN PRN Reason: Hypoglycemia Insulin Glargine 15 units/ (Miscellaneous Medication) 0.15 mls @ 0 mls/hr SC HS LYUBOV Insulin Glargine 35 units/ (Miscellaneous Medication) 0.35 mls @ 0 mls/hr SC QAM LYUBOV Insulin Human Lispro (Humalog) 0 units SC .AGGRESSIVE SLIDING PRN PRN Reason: Aggressive Correctional Scale Last Admin: 05/05/18 06:30 Dose: 13 unit Labetalol HCl (Normodyne) 10 mg SLOW IVP Q4H PRN PRN Reason: SBP > 150 or DBP > 90 Last Admin: 05/04/18 04:03 Dose: 10 mg Lisinopril (Zestril) 5 mg PO DAILY [facility] Lisinopril (Zestril) 5 mg PO ONE [facility] Loratadine (Claritin) 10 mg PO DAILYPRN PRN PRN Reason: Sinus Symptoms Magnesium Hydroxide (Milk Of Magnesium) 30 ml PO BIDPRN PRN PRN Reason: Constipation Metformin HCl (Glucophage) 1,000 mg PO BID-[facility] Last Admin: 05/05/18 08:39 Dose: 1,000 mg Mineral Oil/White Petrolatum (Eucerin Cream) 0 gm TOP BIDPRN PRN PRN Reason: Dry Skin Ondansetron HCl (Zofran) 4 mg IVP BIDPRN PRN PRN Reason: Nausea/Vomiting Last Admin: 05/03/18 23:10 Dose: 4 mg Ondansetron HCl (Zofran) 4 mg IVP Q6H PRN PRN Reason: Nausea/Vomiting Pantoprazole Sodium (Protonix) 40 mg PO DAILY [facility] Last Admin: 05/05/18 08:40 Dose: 40 mg Senna/Docusate Sodium (Senokot S) 2 tab PO BID PRN PRN Reason: Constipation Sodium Chloride (Flush - Normal Saline) 10 ml IVF PRN PRN PRN Reason: Saline Flush Sodium Chloride ([place] Nasal [place] 0.65%) 0 ml EA NARE QIDPRN PRN PRN Reason: Nasal Congestion Throat Lozenges (Cepastat Lozenges) 1 litzy PO Q2H PRN PRN Reason: Sore Throat Zolpidem Tartrate (Ambien) 5 mg PO HSPRN PRN PRN Reason: Insomnia
[2018-05-05] MEDS ORDERED: Carvedilol 6.25 MG TAB PO SCH (10:00)
[2018-05-05] MEDS ORDERED: Lisinopril 5 MG TAB PO SCH (10:00)
--- NOTE | 2018-05-05 10:53 | PRG ---
DATE OF SERVICE: 05/05/2018 SERVICE: Pulmonary Medicine. INTERVAL HISTORY: The patient is doing really well from a respiratory standpoint. He is breathing c omfortably. His blood pressure is under good control, but requires nicardipine drip in order to keep him there. He got started on some p.o. blood pressure medications today. Otherwise, there has been no interval change to his condition. He is a little bit unstable when he stands up, but indicates h e is much improved compared to when he presented. PHYSICAL EXAMINATION: VITAL SIGNS: Afebrile, pulse 78, blood pressure 140/66, respirations 23, saturation 98% on room air. GENERAL: The patient is awake, alert, no apparent distress. LUNGS: Excellent air entry. No prolonged expiratory phase, wheezing, rhonchi, or crackles present. HEART: Normal rate, regular. ABDOMEN: Soft, nontender, nondistended. Bowel sounds are positive. MUSCULOSKELETAL: No cyanosis or clubbing. There is no pitting in the bilateral lower extremities. LABORATORY DATA: WBC 9.1. Blood sugar 400 with hemoglobin A1c of 10.1. TSH falls within the normal limits of 1.03. Cannabinoids are positive on the urine drug screen. IMAGING DATA: Ultrasound of the neck demonstrates no hemodynamically significant stenosis identified . ASSESSMENT: 1. Intracranial hemorrhage of the left cerebellum. 2. Malignant hypertension, resolved. 3. Type 2 diabetes mellitus, poorly controlled. DISCUSSION AND PLAN: We will continue to titrate his insulin. He just got introduced on p.o. blood pressure medications. We will wean that nicardipine drip through time. Once he is off of this drip, he will be stable for transition to the stroke unit. I will continue frequent neuro checks to make certain he does not further decompensate.
[2018-05-05] MEDS: Labetalol HCl 100 MG/20 ML VIAL SLOW IVP PRN (16:25)
[2018-05-05] MEDS: Carvedilol 6.25 MG TAB PO SCH (17:11)
[2018-05-05] MEDS ORDERED: Insulin Glargine 15 UNITS in Pre-Filled Syringe 1 EACH SC SCH (21:00)
[2018-05-05] MEDS: Amlodipine 10 MG TAB PO SCH (21:59)
[2018-05-06] MEDS: Labetalol HCl 100 MG/20 ML VIAL SLOW IVP PRN ×3 (01:40→23:12)
[2018-05-06] MEDS: HumaLOG 300 UNITS/3 ML VIAL SC PRN ×2 (06:33→11:32)
[2018-05-06] MEDS: Carvedilol 6.25 MG TAB PO SCH ×2 (09:31→16:05)
[2018-05-06] MEDS: metFORMIN 500 MG TAB PO SCH ×2 (09:31→16:05)
[2018-05-06] MEDS: Lisinopril 5 MG TAB PO SCH (09:32)
--- NOTE | 2018-05-06 10:08 | PDOC.PN ---
- Subjective Encounter Start Date: 05/06/18 Encounter Start Time: 07:20 Patient seen and examined. No new complaints. No overnight events - Objective Resuscitation Status: Resuscitation Status FULL:Full Resuscitation MAR Reviewed: Yes Vital Signs & Weight: Vital Signs (12 hours) Temp Pulse Resp BP BP Pulse Ox 05/06/18 09:32 62 146/87 H 05/06/18 09:31 146/87 H 05/06/18 08:00 98.5 F 62 16 146/87 H 95 05/06/18 04:00 99.2 F 59 L 19 137/80 96 05/06/18 01:40 62 05/06/18 00:00 98.9 F 69 18 151/92 H 96 Weight Weight 247 lb 3.2 oz Most Recent Monitor Data Heart Rate from ECG 65 NIBP 133/83 NIBP BP-Mean 99 Respiration from ECG 27 SpO2 99 I&O: 05/05/18 05/06/18 05/07/18 06:59 06:59 06:59 Intake Total 2271.9 1596 300 Output Total 1750 1850 Balance 521.9 -254 300 Result Diagrams: 05/03/18 17:58 05/03/18 17:58 Additional Labs: Accuchecks 05/06/18 05/05/18 05/05/18 05:49 21:39 16:09 POC Glucose 200 H 229 H 164 H 05/05/18 11:44 POC Glucose 312 H Radiology Reviewed by me: Yes (echo reviewed) EKG Reviewed by me: Yes (nsr) Phys Exam - Physical Examination Constitutional: NAD HEENT: PERRLA, moist MMs, sclera anicteric Neck: no JVD, supple Respiratory: no wheezing, no rales, no rhonchi Cardiovascular: RRR, no significant murmur, no rub Gastrointestinal: soft, non-tender, no distention, positive bowel sounds Musculoskeletal: no edema, pulses present Neurological: non-focal, normal sensation mild dysmetria noted Psychiatric: normal affect, A&O x 3 Skin: no rash, normal turgor Dx/Plan (1) Cerebellar hemorrhage, nontraumatic Code(s): I61.4 - NONTRAUMATIC INTRACEREBRAL HEMORRHAGE IN CEREBELLUM Status: Acute Qualifiers: Laterality: left Qualified Code(s): I61.4 - Nontraumatic intracerebral hemorrhage in cerebellum (2) Demand ischemia of myocardium Code(s): I24.8 - OTHER FORMS OF ACUTE ISCHEMIC HEART DISEASE Status: Acute (3) Hyperglycemia due to type 2 diabetes mellitus Code(s): E11.65 - TYPE 2 DIABETES MELLITUS WITH HYPERGLYCEMIA Status: Acute (4) Hypertensive emergency Code(s): I16.1 - HYPERTENSIVE EMERGENCY Status: Resolved (5) Hypokalemia Code(s): E87.6 - HYPOKALEMIA Status: Acute (6) Diabetes type 2, uncontrolled Code(s): E11.65 - TYPE 2 DIABETES MELLITUS WITH HYPERGLYCEMIA Status: Chronic (7) Hypertension Code(s): I10 - ESSENTIAL (PRIMARY) HYPERTENSION Status: Chronic (8) Tobacco abuse Code(s): Z72.0 - TOBACCO USE Status: Chronic (9) Cannabis abuse Code(s): F12.10 - CANNABIS ABUSE, UNCOMPLICATED Status: Chronic - Plan cont current plan of care, PT/OT * medication reviewed as below * symptomatic treatment * increase lantus 40 unit in am and 20 unit at PM. * continue PT and monitor Review of Systems - Review of Systems Constitutional: negative: fever, chills, sweats, weakness, malaise, other Eyes: negative: Pain, Vision Change, Conjunctivae Inflammation, Eyelid Inflammation, Redness, Other ENT: negative: Ear Pain, Ear Discharge, Nose Pain, Nose Discharge, Nose Congestion, Mouth Pain, Mouth Swelling, Throat Pain, Throat Swelling, Other Respiratory: negative: Cough, Dry, Shortness of Breath, Hemoptysis, SOB with Excertion, Pleuritic Pain, Sputum, Wheezing Cardiovascular: negative: chest pain, palpitations, orthopnea, paroxysmal nocturnal dyspnea, edema, light headedness, other Gastrointestinal: negative: Nausea, Vomiting, Abdominal Pain, Diarrhea, Constipation, Melena, Hematochezia, Other Genitourinary: negative: Dysuria, Frequency, Incontinence, Hematuria, Retention , Other Musculoskeletal: negative: Neck Pain, Shoulder Pain, Arm Pain, Back Pain, Hand Pain, Leg Pain, Foot Pain, Other Skin: negative: Rash, Lesions, Kade, Bruising, Other Neurological: Incoordination. negative: Weakness, Numbness, Change in Speech, Confusion, Seizures, Other - Medications/Allergies Allergies/Adverse Reactions: Allergies Allergy/AdvReac Type Severity Reaction Status Date / Time No Known Allergies Allergy Unverified 06/07/17 07:31 Medications: Current Medications Acetaminophen (Tylenol) 650 mg PO Q6H PRN PRN Reason: Fever > 101 or Headache Al Hydroxide/Mg Hydroxide (Maalox) 30 ml PO QIDPRN PRN PRN Reason: Dyspepsia Amlodipine Besylate (Norvasc) 10 mg PO [facility] Last Admin: 05/05/18 21:59 Dose: 10 mg Artificial Tears (Tears Naturale) 2 drop EA EYE PRN PRN PRN Reason: Dry Eyes Bisacodyl (Dulcolax) 10 mg NM DAILYPRN PRN PRN Reason: Constipation Carvedilol (Coreg) 12.5 mg PO BID-[facility] Last Admin: 05/06/18 09:31 Dose: 12.5 mg Dextrose/Water (Dextrose 50%) 25 gm SLOW IVP PRN PRN PRN Reason: Hypoglycemia Docusate Sodium (Colace) 100 mg PO BIDPRN PRN PRN Reason: Constipation Glucagon (Glucagon) 1 mg IM PRN PRN PRN Reason: HYPOGLYCEMIA PROTOCOL Guaifenesin (Robitussin Sf) 200 mg PO Q4H PRN PRN Reason: Cough Hydralazine HCl (Apresoline) 5 mg SLOW IVP Q15MIN PRN PRN Reason: SBP >140 Last Admin: 05/04/18 09:29 Dose: 5 mg Dextrose/Water (D5w) 1,000 mls @ 0 mls/hr IV .Q0M PRN PRN Reason: Hypoglycemia Insulin Glargine 20 units/ (Miscellaneous Medication) 0.2 mls @ 0 mls/hr SC HS [facility] Insulin Glargine 40 units/ (Miscellaneous Medication) 0.4 mls @ 0 mls/hr [facility] Insulin Human Lispro (Humalog) 0 units SC .AGGRESSIVE SLIDING PRN PRN Reason: Aggressive Correctional Scale Last Admin: 05/06/18 06:33 Dose: 3 unit Labetalol HCl (Normodyne) 10 mg SLOW IVP Q4H PRN PRN Reason: SBP > 150 or DBP > 90 Last Admin: 05/06/18 01:40 Dose: 10 mg Lisinopril (Zestril) 5 mg PO DAILY [facility] Last Admin: 05/06/18 09:32 Dose: 5 mg Loratadine (Claritin) 10 mg PO DAILYPRN PRN PRN Reason: Sinus Symptoms Magnesium Hydroxide (Milk Of Magnesium) 30 ml PO BIDPRN PRN PRN Reason: Constipation Metformin HCl (Glucophage) 1,000 mg PO BID-[facility] Last Admin: 05/06/18 09:31 Dose: 1,000 mg Mineral Oil/White Petrolatum (Eucerin Cream) 0 gm TOP BIDPRN PRN PRN Reason: Dry Skin Ondansetron HCl (Zofran) 4 mg IVP BIDPRN PRN PRN Reason: Nausea/Vomiting Last Admin: 05/03/18 23:10 Dose: 4 mg Ondansetron HCl (Zofran) 4 mg IVP Q6H PRN PRN Reason: Nausea/Vomiting Pantoprazole Sodium (Protonix) 40 mg PO DAILY [facility] Last Admin: 05/06/18 09:32 Dose: 40 mg Senna/Docusate Sodium (Senokot S) 2 tab PO BID PRN PRN Reason: Constipation Sodium Chloride (Flush - Normal Saline) 10 ml IVF PRN PRN PRN Reason: Saline Flush Sodium Chloride ([place] Nasal [place] 0.65%) 0 ml EA NARE QIDPRN PRN PRN Reason: Nasal Congestion Throat Lozenges (Cepastat Lozenges) 1 lityz PO Q2H PRN PRN Reason: Sore Throat Zolpidem Tartrate (Ambien) 5 mg PO HSPRN PRN PRN Reason: Insomnia
[2018-05-06] MEDS: Insulin Glargine 40 UNITS in Pre-Filled Syringe 1 EACH SC SCH (10:11)
[2018-05-06] MEDS: Amlodipine 10 MG TAB PO SCH (20:38)
[2018-05-06] MEDS ORDERED: Insulin Glargine 20 UNITS in Pre-Filled Syringe 1 EACH SC SCH (21:00)
--- NOTE | 2018-05-06 21:21 | PRG ---
DATE OF SERVICE: 05/06/2018 SERVICE: Pulmonary Medicine. INTERVAL HISTORY: The patient is doing fantastic from a respiratory standpoint. He actually got up and walked with physical therapy today. He feels more stable in his feet. Otherwise, there has been no interval change to his condition. He has no complaints of respiratory discomfort or cough. PHYSICAL EXAMINATION: VITAL SIGNS: Afebrile with T-max of 99.4, pulse 64, blood pressure 151/95, respirations 16, saturati on 94% on room air. GENERAL: The patient is awake, alert, in no apparent distress. LUNGS: Excellent air entry with no prolonged expiratory phase, wheezing, rhonchi or crackles. HEART: Normal rate, regular. ABDOMEN: Soft, nontender, nondistended. Bowel sounds are positive. MUSCULOSKELETAL: No cyanosis or clubbing. No pitting in the bilateral lower extremities. LABORATORY DATA: Blood sugars ranged from 164-129. IMAGING DATA: 1. Echocardiogram demonstrates normal ejection fraction 2. No thrombus is noted in the cardiac chambers. Normal sized left atrium is noted. ASSESSMENT: 1. Intracranial hemorrhage in the left cerebellum. 2. Malignant hypertension, resolved. 3. Type 2 diabetes mellitus. DISCUSSION AND PLAN: The patient is doing outstanding from a respiratory standpoint. His blood pres sure is under control. From a purely respiratory perspective, the patient is stable for transition o wi of the hospital. Dr. Colon will resume care in the morning.
[2018-05-07] MEDS: hydrALAZINE 20 MG/ML VIAL SLOW IVP PRN ×2 (00:30→01:07)
[2018-05-07] MEDS: cloNIDine 0.1 MG TAB PO PRN ×2 (02:06→16:25)
[2018-05-07] MEDS: Carvedilol 6.25 MG TAB PO SCH ×2 (08:31→16:22)
[2018-05-07] MEDS: metFORMIN 500 MG TAB PO SCH ×2 (08:31→16:22)
[2018-05-07] MEDS: Lisinopril 5 MG TAB PO SCH (08:32)
[2018-05-07] MEDS: Insulin Glargine 40 UNITS in Pre-Filled Syringe 1 EACH SC SCH (08:32)
--- NOTE | 2018-05-07 09:32 | PRG ---
DATE OF SERVICE: 05/07/2018 SUBJECTIVE: The patient says he is feeling better except for some gait instability. PHYSICAL EXAMINATION: VITAL SIGNS: His temperature is 97.9, pulse 61, blood pressure 143/90, respirations 14, O2 sat 96%. HEENT: Unremarkable. NECK: No JVD. CHEST: Clear. CARDIAC: S1 and S2 regular. ABDOMEN: Soft. EXTREMITIES: No edema. ASSESSMENT: 1. Cerebellar hemorrhage 2. Malignant hypertension. PLAN: Blood pressure control and stroke rehabilitation. No further Pulmonary and Critical Care issu es. We will sign off. Please recall if further assistance needed.
--- NOTE | 2018-05-07 09:42 | PDOC.PN ---
- Subjective Encounter Start Date: 05/07/18 Encounter Start Time: 07:50 pt still has some incoordination when he walks, no headache, Patient seen and examined. No new complaints. No overnight events - Objective Resuscitation Status: Resuscitation Status FULL:Full Resuscitation MAR Reviewed: Yes Vital Signs & Weight: Vital Signs (12 hours) Temp Pulse Resp BP BP BP Pulse Ox 05/07/18 08:32 61 143/90 H 05/07/18 08:31 143/90 H 05/07/18 07:53 97.9 F 61 14 143/90 H 96 05/07/18 07:04 94 L 05/07/18 03:35 98.8 F 64 20 142/91 H 94 L 05/07/18 02:39 136/58 L 05/07/18 02:06 184/84 H 05/07/18 01:07 64 159/90 H 05/07/18 00:30 62 151/92 H 05/06/18 23:12 99.2 F 62 20 151/92 H 95 Weight Weight 243 lb 4.8 oz Most Recent Monitor Data Heart Rate from ECG 65 NIBP 133/83 NIBP BP-Mean 99 Respiration from ECG 27 SpO2 99 I&O: 05/06/18 05/07/18 05/08/18 06:59 06:59 06:59 Intake Total 1596 900 Output Total 1850 1300 Balance -254 -400 Result Diagrams: 05/03/18 17:58 05/03/18 17:58 Additional Labs: Accuchecks 05/07/18 05/06/18 05/06/18 06:17 20:33 16:49 POC Glucose 130 H 116 H 130 H 05/06/18 10:28 POC Glucose 227 H EKG Reviewed by me: Yes (nsr) Phys Exam - Physical Examination Constitutional: NAD HEENT: PERRLA, moist MMs, sclera anicteric Neck: no JVD, supple Respiratory: no wheezing, no rales, no rhonchi Cardiovascular: RRR, no significant murmur, no rub Gastrointestinal: soft, non-tender, no distention, positive bowel sounds Musculoskeletal: no edema, pulses present Neurological: non-focal, normal sensation dysmetria noted Psychiatric: normal affect, A&O x 3 Skin: no rash, normal turgor Dx/Plan (1) Cerebellar hemorrhage, nontraumatic Code(s): I61.4 - NONTRAUMATIC INTRACEREBRAL HEMORRHAGE IN CEREBELLUM Status: Acute Qualifiers: Laterality: left Qualified Code(s): I61.4 - Nontraumatic intracerebral hemorrhage in cerebellum (2) Demand ischemia of myocardium Code(s): I24.8 - OTHER FORMS OF ACUTE ISCHEMIC HEART DISEASE Status: Acute (3) Hyperglycemia due to type 2 diabetes mellitus Code(s): E11.65 - TYPE 2 DIABETES MELLITUS WITH HYPERGLYCEMIA Status: Acute (4) Hypertensive emergency Code(s): I16.1 - HYPERTENSIVE EMERGENCY Status: Resolved (5) Hypokalemia Code(s): E87.6 - HYPOKALEMIA Status: Acute (6) Diabetes type 2, uncontrolled Code(s): E11.65 - TYPE 2 DIABETES MELLITUS WITH HYPERGLYCEMIA Status: Chronic (7) Hypertension Code(s): I10 - ESSENTIAL (PRIMARY) HYPERTENSION Status: Chronic (8) Tobacco abuse Code(s): Z72.0 - TOBACCO USE Status: Chronic (9) Cannabis abuse Code(s): F12.10 - CANNABIS ABUSE, UNCOMPLICATED Status: Chronic - Plan cont current plan of care, PT/OT, case management social worker * medication reviewed as below * symptomatic treatment * pt is interested in rehab, will consult family caseworker for inpt rehab placement * now BP and blood sugar well controlled * will monitor Review of Systems - Review of Systems Constitutional: negative: fever, chills, sweats, weakness, malaise, other Eyes: negative: Pain, Vision Change, Conjunctivae Inflammation, Eyelid Inflammation, Redness, Other ENT: negative: Ear Pain, Ear Discharge, Nose Pain, Nose Discharge, Nose Congestion, Mouth Pain, Mouth Swelling, Throat Pain, Throat Swelling, Other Respiratory: negative: Cough, Dry, Shortness of Breath, Hemoptysis, SOB with Excertion, Pleuritic Pain, Sputum, Wheezing Cardiovascular: negative: chest pain, palpitations, orthopnea, paroxysmal nocturnal dyspnea, edema, light headedness, other Gastrointestinal: negative: Nausea, Vomiting, Abdominal Pain, Diarrhea, Constipation, Melena, Hematochezia, Other Genitourinary: negative: Dysuria, Frequency, Incontinence, Hematuria, Retention , Other Musculoskeletal: negative: Neck Pain, Shoulder Pain, Arm Pain, Back Pain, Hand Pain, Leg Pain, Foot Pain, Other Skin: negative: Rash, Lesions, Kade, Bruising, Other Neurological: Incoordination. negative: Weakness, Numbness, Change in Speech, Confusion, Seizures, Other - Medications/Allergies Allergies/Adverse Reactions: Allergies Allergy/AdvReac Type Severity Reaction Status Date / Time No Known Allergies Allergy Unverified 06/07/17 07:31 Medications: Current Medications Acetaminophen (Tylenol) 650 mg PO Q6H PRN PRN Reason: Fever > 101 or Headache Last Admin: 05/07/18 00:35 Dose: 650 mg Al Hydroxide/Mg Hydroxide (Maalox) 30 ml PO QIDPRN PRN PRN Reason: Dyspepsia Amlodipine Besylate (Norvasc) 10 mg PO [facility] Last Admin: 05/06/18 20:38 Dose: 10 mg Artificial Tears (Tears Naturale) 2 drop EA EYE PRN PRN PRN Reason: Dry Eyes Atorvastatin Calcium (Lipitor) 40 mg PO HS [facility] Bisacodyl (Dulcolax) 10 mg GA DAILYPRN PRN PRN Reason: Constipation Carvedilol (Coreg) 12.5 mg PO BID-[facility] Last Admin: 05/07/18 08:31 Dose: 12.5 mg Clonidine (Catapres) 0.1 mg PO Q4H PRN PRN Reason: FOR SBP > 140 Last Admin: 05/07/18 02:06 Dose: 0.1 mg Dextrose/Water (Dextrose 50%) 25 gm SLOW IVP PRN PRN PRN Reason: Hypoglycemia Docusate Sodium (Colace) 100 mg PO BIDPRN PRN PRN Reason: Constipation Glucagon (Glucagon) 1 mg IM PRN PRN PRN Reason: HYPOGLYCEMIA PROTOCOL Guaifenesin (Robitussin Sf) 200 mg PO Q4H PRN PRN Reason: Cough Hydralazine HCl (Apresoline) 5 mg SLOW IVP Q15MIN PRN PRN Reason: SBP >140 Last Admin: 05/07/18 01:07 Dose: 5 mg Dextrose/Water (D5w) 1,000 mls @ 0 mls/hr IV .Q0M PRN PRN Reason: Hypoglycemia Insulin Glargine 20 units/ (Miscellaneous Medication) 0.2 mls @ 0 mls/hr SC [facility] Last Admin: 05/06/18 20:38 Dose: 0.2 mls Insulin Glargine 40 units/ (Miscellaneous Medication) 0.4 mls @ 0 mls/hr SC [facility] Last Admin: 05/07/18 08:32 Dose: 0.4 mls Insulin Human Lispro (Humalog) 0 units SC .AGGRESSIVE SLIDING PRN PRN Reason: Aggressive Correctional Scale Last Admin: 05/06/18 11:32 Dose: 4 unit Labetalol HCl (Normodyne) 10 mg SLOW IVP Q4H PRN PRN Reason: SBP > 150 or DBP > 90 Last Admin: 05/06/18 23:12 Dose: 10 mg Lisinopril (Zestril) 5 mg PO DAILY [facility] Last Admin: 05/07/18 08:32 Dose: 5 mg Loratadine (Claritin) 10 mg PO DAILYPRN PRN PRN Reason: Sinus Symptoms Magnesium Hydroxide (Milk Of Magnesium) 30 ml PO BIDPRN PRN PRN Reason: Constipation Metformin HCl (Glucophage) 1,000 mg PO BID-[facility] Last Admin: 05/07/18 08:31 Dose: 1,000 mg Mineral Oil/White Petrolatum (Eucerin Cream) 0 gm TOP BIDPRN PRN PRN Reason: Dry Skin Ondansetron HCl (Zofran) 4 mg IVP BIDPRN PRN PRN Reason: Nausea/Vomiting Last Admin: 05/03/18 23:10 Dose: 4 mg Ondansetron HCl (Zofran) 4 mg IVP Q6H PRN PRN Reason: Nausea/Vomiting Pantoprazole Sodium (Protonix) 40 mg PO DAILY [facility] Last Admin: 05/07/18 08:32 Dose: 40 mg Senna/Docusate Sodium (Senokot S) 2 tab PO BID PRN PRN Reason: Constipation Sodium Chloride (Flush - Normal Saline) 10 ml IVF PRN PRN PRN Reason: Saline Flush Sodium Chloride ([place] Nasal [place] 0.65%) 0 ml EA NARE QIDPRN PRN PRN Reason: Nasal Congestion Throat Lozenges (Cepastat Lozenges) 1 litzy PO Q2H PRN PRN Reason: Sore Throat Zolpidem Tartrate (Ambien) 5 mg PO HSPRN PRN PRN Reason: Insomnia
[2018-05-07] MEDS: HumaLOG 300 UNITS/3 ML VIAL SC PRN (11:50)
[2018-05-07 12:21] VITALS: TEMP 98.3
--- NOTE | 2018-05-07 13:37 | DIS ---
DATE OF ADMISSION: 05/03/2018 DATE OF DISCHARGE: 05/07/2018 PRIMARY CARE PHYSICIAN: Priscilla call admission. DISCHARGE DISPOSITION: Home with home health. PRIMARY DISCHARGE DIAGNOSES: 1. Left cerebellar hemorrhage due to hypertension. 2. Demand ischemia of myocardium. 3. Hyperglycemia, associated with diabetes, type 2. 4. Hypokalemia. 5. Cannabis abuse. 6. Hypertensive emergency on admission. SECONDARY DISCHARGE DIAGNOSES: Tobacco abuse; cannabis abuse; hypertension; diabetes, type 2; dyslipidemia. PRIMARY PROCEDURE/OPERATION: None. RADIOLOGICAL INVESTIGATION: Chest x-ray normal. CT brain x2 showed stable left cerebellar hemorrhage. Carotid Doppler, no stenosis. Echocardiography, normal EF. SIGNIFICANT LABORATORY DATA: WBC 9.1, hemoglobin 13.8, platelets 276. INR 1.0. LDL 110. Sodium 137, potassium 3.3, BUN 8, creatinine 0.86. LFT normal. Troponin 0.034. Urine drug screen positive for cannabinoids. DISCHARGE MEDICATIONS: Metformin 1000 mg p.o. b.i.d., Lovastatin 20 mg p.o. daily, Coreg 25 mg p.o. b.i.d., Novolin 70/30 insulin 40 units in morning and 30 units at bedtime, lisinopril/HCTZ 10/12.5 mg p.o. daily. CONTRAINDICATIONS: None. CODE STATUS: FULL CODE. INPATIENT CONSULTANTS: Initially, patient was admitted under Neurosurgery, and subsequently, they transferred care to medicine team. Pulmonary group was following, because patient was admitted in CCU. TEST RESULTS PENDING ON DISCHARGE: None. ALLERGIES: No known drug allergy. DISCHARGE PLAN: Post hospital, the patient has decided to go home with home health. Patient will follow up with primary care physician and neurosurgeon as instructed. HOSPITAL COURSE: The patient is a 63-year-old -[place] male, who was admitted to hospital. He came to the ER with nausea, vomiting, and headache as well as unsteadiness. In the emergency room, CT brain showed left cerebellar hemorrhage. The patient was admitted under neurosurgeon in ICU. Initially, he was having hypertensive emergency that was treated with Cardene drip. The patient also had hyperglycemia, associated with diabetes, type 2, which was treated with insulin drip and insulin while in ICU. Upon stabilization, this patient was transferred to stroke floor. PT/OT was consulted and stroke team was consulted. Medicine team has taken over on his care. Pulmonary group was following, because patient was admitted in CCU. This patient will need repeat MRI after dissolution of hematoma in the left cerebellum to rule out any underlying etiology. Echocardiography was normal. We did PT, OT and patient was doing very well and he was requiring a walker for ambulation. Initially, the patient expressed his wish to go to rehab, but subsequently, he changed his mind to go home with home health. As this patient has cerebellar stroke and he has underlying incoordination with gait and that is why he needs a rolling walker that was recommended by physical therapist. The patient is seen and examined at bedside today. Please see my progress note from today for further detail. Healthy lifestyle measures discussed with the patient. All new medication mentioned above was prescribed and sent to his pharmacy. LILIAN
[2018-05-07 18:30] VITALS: BP 142/96
[2018-05-07] MEDS ORDERED: Atorvastatin Calcium 40 MG TAB PO SCH (21:00)
--- NOTE | 2018-05-08 09:52 | ADD-DIS ---
This patient's prescription was sent to [facility], but medication was expensive and patient was in terested in getting cheaper medication and that is why we changed the discharge medication to [facility] $4 prescription plan and we sent prescription to [facility] in [place]. Patient is now given Coreg 25 mg p.o. b.i.d.; Keflex 500 mg p.o. t.i.d. for 10 days; Novolin 70/30, 40 units in morning and 30 units in evening; Prinzide 10/12.5 one tablet daily; lovastatin 20 mg p.o. q. evening; metformin 1000 mg p. o. b.i.d. This patient had a mild superficial thrombophlebitis at IV site and that is why we have pr escribed Keflex to prevent infection. The patient is medically stable.
== END 2018-05-07 18:37 | disposition home health service (06) | DRG 65 ==
LOC: ERS 17:07 → CCU 18:48 → 2SE 05-05 18:09
PROVIDERS: ADMIT Neurological Surgery; ATTEND Neurological Surgery
DX: I61.4 Nontraumatic intracerebral hemorrhage in cerebellum (principal); I16.1 Hypertensive emergency; I24.8 Other forms of acute ischemic heart disease; I10 Essential (primary) hypertension; F14.10 Cocaine abuse, uncomplicated; F12.10 Cannabis abuse, uncomplicated; F17.210 Nicotine dependence, cigarettes, uncomplicated; Z91.120 Patient's intentional underdosing of medication regimen due to financial hardship; E11.65 Type 2 diabetes mellitus with hyperglycemia; E87.6 Hypokalemia; E66.9 Obesity, unspecified; Z68.29 Body mass index [BMI] 29.0-29.9, adult
CPT/HCPCS: 36415; 36416; 36620; 70450; 71045; 80053; 80061; 80306; 82553; 83036; 84443; 84484; 85025; 85610; 85730; 93005; 93306; 93880; 94760; 96365; 96375; 96376; G8978-GP-CL; G8979-GP-CI; G8987-GO-CJ; G8988-GO-CI; G8996-GN-CH; G8997-GN-CH; G8998-GN-CH; J0360; J1815; J2001; J2405; J7050